=== PATIENT | female | born 1970 | race Caucasian/White ===

== ENCOUNTER 2018-07-01 20:17 | Inpatient (IN) | payer OTHER ==
[~2018-07-01] VITALS: Ht 162.6 cm; Wt 91.2 kg
[2018-07-01 20:17] VITALS: BP 130/90
[~2018-07-01 20:17] MED LIST: ALPR1TAB2 PO; LAMO150T PO; PARO40TA1 PO; ZIPR60CA1 PO
--- NOTE | 2018-07-01 20:20 | NUR ---
PT BIBA C/O DIZZINESS. PT STATES SHE WAS GIVING BLOOD TODAY AND AFTER PROCEDURE PT GOT DIZZY UPON STANDING. PT STATES 0/10 PAIN. PT ACTING APPROPRIATLY. PUPILS ACCOMMODATING BL. PT SPEAKING IN CLEAR AND COMPLETE SENTENCES; PT ACTING APPROPRIATLY. PT IN GOWN; SAFETY PRECAUTION IN PLACE. PENDING ER MD MAZARIEGOS. PMH: HYPERTENSION
--- NOTE | 2018-07-01 20:21 | NUR ---
PT AMBULATED W/ STEADY GATE TO BED 11.
--- NOTE | 2018-07-01 21:35 | NUR ---
SNACK AND JUICE PROVIDED UPON PT REQUEST.
--- NOTE | 2018-07-01 23:30 | NUR ---
LAB AT BEDSIDE.
--- NOTE | 2018-07-01 23:42 | NUR ---
MIGUEL ANGEL EMT AT BEDSIDE PERFORMING EKG.
[2018-07-01 23:43] LABS: BASOPHILS # (AUTO) 0.1 K/uL (0.00-0.22); EOSINOPHILS # (AUTO) 0.6 K/uL (0-0.4); EOSINOPHILS % (AUTO) 4.1 % (0.0-4.0); HEMATOCRIT 40.1 % (36-48); HEMOGLOBIN 13.4 g/dL (12.0-16.0); LYMPHOCYTES # (AUTO) 3.6 K/uL (2.5-16.5); MEAN CORPUSCULAR HEMOGLOBIN 28 pg (27-31); MEAN CORPUSCULAR HGB CONC 33 g/dL (33-37); MEAN CORPUSCULAR VOLUME 84.7 fL (80-94); MONOCYTES # (AUTO) 0.8 K/uL (0.8-1.0); MONOCYTES % (AUTO) 5.2 % (1.7-9.3); PLATELET COUNT (AUTO) 415 K/uL (140-450); RED BLOOD CELL COUNT(AUTO) 4.73 MIL/uL (4.20-5.40); RED CELL DISTRIBUTION WIDTH 14.1 % (11.6-13.7); WHITE BLOOD COUNT (AUTO) 15.2 K/uL (4.8-10.8)
[2018-07-01 23:53] LABS: APPEARANCE,URINE CLEAR (CLEAR); BILIRUBIN,URINE NEGATIVE (NEGATIVE); BLOOD, URINE NEGATIVE (NEGATIVE); COLOR,URINE YELLOW (YELLOW); LEUKOCYTE ESTERASE ,URINE NEGATIVE (NEGATIVE); NITRITE, URINE NEGATIVE (NEGATIVE); PH,URINE 7.5 (5.0-9.0); UGLUCOSE NEGATIVE (NEGATIVE)
[2018-07-02 00:07] LABS: ALBUMIN 3.4 g/dL (3.4-5.0); ANION GAP 10.8 (8-16); CARBON DIOXIDE 32.9 mmol/L (21-32); TOTAL BILIRUBIN 0.2 mg/dL (0.0-1.0)
[2018-07-02 00:09] LABS: POTASSIUM 2.7 mmol/L (3.5-5.1)
[2018-07-02 00:12] LABS: NEUTROPHILS % (AUTO) 65.7 % (42.2-75.2)
[2018-07-02] MEDS ORDERED: POTASSIUM CHL 20 MEQ/NACL 0.9% 1,000 ML IV ONE (02:30)
[2018-07-02] MEDS: POTASSIUM CHL 20MEQ/D5-NS 1,000 ML IV SCH ×3 (02:30→22:32)
[2018-07-02] MEDS ORDERED: ONDANSETRON 4 MG/2 ML VIAL IVP PRN (02:30)
[2018-07-02 03:00] VITALS: BP 120/76
--- NOTE | 2018-07-02 03:00 | NUR ---
RECEIVED BEDSIDE REPORT FROM ED NURSE. PATIENT IS AWAKE, ALERT, AND COOPERATIVE . RESPIRATION EVEN UNLABORED ON ROOM AIR. NO DISTRESS NOTED. SKIN IS WARM AND DRY. IV PATENT AND INTACT. PLAN OF CARE WAS DISCUSSED AND REVIEWED. ALL SAFETY MEASURES IN PLACE. MRSA SCREEN DONE. ORIENT PATIENT TO ROOM, STAFF, AND CALL LIGHT. BED IS AT LOW POSITION. CALL LIGHT WITHIN REACH AND VERBALIZES ITS USE. WILL CONTINUE TO MONITOR.
--- NOTE | 2018-07-02 03:05 | NUR ---
Admited to Tele. Patient went to room 123-A via gurney, by RN and EMT. Patient acting appropriatly, states 0/10 pain. Belongings list completed. Report to SARA Hanson.
[2018-07-02 04:00] VITALS: BP 116/72
--- NOTE | 2018-07-02 04:00 | NUR ---
VITALS WERE TAKEN. PATIENT CONDITION STABLE. WILL CONTINUE TO MONITOR
--- NOTE | 2018-07-02 05:55 | NUR ---
PATIENT SLEEPING RESPIRATION EVEN UNLABORED ON ROOM AIR. NO DISTRESS NOTED. WILL CONTINUE TO MONITOR
--- NOTE | 2018-07-02 07:20 | NUR ---
ENDORSED PATIENT TO DAY SHIFT NURSE FOR CONTINUITY OF CARE. PATIENT IS IN STABLE CONDITION.
--- NOTE | 2018-07-02 07:21 | NUR ---
RECEIVED BEDSIDE REPORT FROM SARA PRESLEY. PATIENT ON TELE MONITOR AND STANDARD PRECAUTIONS IN PLACE. PATIENT AAOX4 AND COMMUNICATES APPROPRIATELY, ON ROOM AIR, NO DISTRESS NOTED. PATIENT AMBULATORY AND CONTINENT. SKIN INTACT. FALL RISK PROTOCOL IN PLACE. IV ON R WRIST 20 G, IV ASYMPTOMATIC PATENT AND INTACT. BED IN LOW POSITION, CALL LIGHT WITHIN REACH, SIDE RAILS X2 UP
[2018-07-02 08:00] VITALS: BP 103/73
--- NOTE | 2018-07-02 08:38 | NUR ---
PATIENT HAS BEEN SCREENED AND CATEGORIZED LOW NUTRITION RISK. PATIENT WILL BE SEEN WITHIN 7 DAYS OF ADMISSION. 07/08/[address]
[2018-07-02] MEDS: ALPRAZolam 0.5 MG TAB PO PRN (08:39)
--- NOTE | 2018-07-02 08:42 | NUR ---
ADMINISTERED SCHEDULED MEDS. PATIENT TOLERATED WELL
[2018-07-02] MEDS ORDERED: PARoxetine 20 MG TAB PO SCH (09:00)
--- NOTE | 2018-07-02 11:13 | NUR ---
ADMINISTERED K DUR ORDERED. PATIENT TOLERATED WELL
[2018-07-02] MEDS ORDERED: POTASSIUM CHLORIDE 10 MEQ TABER PO SCH (11:15)
[2018-07-02 12:00] VITALS: BP 118/81
[2018-07-02] MEDS ORDERED: MAG SULF 2000 MG/WATER PREMIX 50 ML IV SCH (12:15)
[2018-07-02] MEDS: MORPHINE SULFATE 2 MG/ML SYR IVP PRN (12:18)
--- NOTE | 2018-07-02 12:25 | NUR ---
PATIENT EATING LUNCH, ON ROOM AIR, NO DISTRESS NOTED
--- NOTE | 2018-07-02 14:26 | NUR ---
PATIENT SLEEPING, ON ROOM AIR, NO DISTRESS NOTED
[2018-07-02 16:00] VITALS: BP 112/70
--- NOTE | 2018-07-02 16:30 | NUR ---
PATIENT AMBULATED TO RESTROOM, ON ROOM AIR, NO DISTRESS NOTED
--- NOTE | 2018-07-02 18:30 | NUR ---
PATIENT TAKING A SHOWER, NOW ON MED SURGE. NO COMPLAINTS AT THIS TIME
--- NOTE | 2018-07-02 19:11 | NUR ---
BEDSIDE REPORT GIVEN TO SARA PRESLEY. PATIENT ENDORSED IN STABLE CONDITION
--- NOTE | 2018-07-02 19:30 | NUR ---
RECEIVED BEDSIDE REPORT FROM DAY SHIFT NURSE. PATIENT IS AWAKE, ALERT, AND COOPERATIVE. RESPIRATION EVEN UNLABORED ON ROOM AIR. NO DISTRESS NOTED. SKIN IS WARM AND DRY. IV PATENT AND INTACT PATIENT IS AMBULATORY. PLAN OF CARE WAS DISCUSSED. ALL SAFETY MEASURES IN PLACE. BED IS AT LOW POSITION. CALL LIGHT WITHIN REACH AND VERBALIZES ITS USE. WILL CONTINUE TO MONITOR.
[2018-07-02 20:00] VITALS: BP 115/75
--- NOTE | 2018-07-02 20:00 | NUR ---
INITIAL ASSESSMENT DONE. VITALS WERE TAKEN. PATIENT CONDITION STABLE. WILL CONTINUE TO MONITOR
--- NOTE | 2018-07-02 21:00 | NUR ---
ALL SCHEDULED MEDS WERE GIVEN AND TOLERATED THEM WELL. NO ASE NOTED. WILL CONTINUE TO MONITOR
--- NOTE | 2018-07-02 23:00 | NUR ---
PATIENT IN BED SLEEPING RESPIRATION EVEN UNLABORED ON ROOM AIR. NO DISTRESS NOTED. WILL CONTINUE TO MONITOR
[2018-07-03] VITALS: BP 90/60
--- NOTE | 2018-07-03 | NUR ---
VITALS WERE TAKEN. PATIENT CONDITION STABLE. NO DISTRESS NOTED. WILL CONTINUE TO MONITOR
--- NOTE | 2018-07-03 02:45 | NUR ---
PATIENT WOKE UP COMPLAINING OF ARM PAIN 08/24. PRN PAIN MED ADMINISTERED PER ORDER. WILL CONTINUE TO MONITOR
[2018-07-03] MEDS: MORPHINE SULFATE 2 MG/ML SYR IVP PRN ×2 (02:49→08:05)
[2018-07-03 06:25] LABS: BASOPHILS # (AUTO) 0.1 K/uL (0.00-0.22); BASOPHILS % (AUTO) 1.3 % (0.0-2.0); EOSINOPHILS # (AUTO) 0.7 K/uL (0-0.4); EOSINOPHILS % (AUTO) 8.5 % (0.0-4.0); HEMATOCRIT 33.7 % (36-48); HEMOGLOBIN 11.3 g/dL (12.0-16.0); LYMPHOCYTES # (AUTO) 3.1 K/uL (2.5-16.5); LYMPHOCYTES % (AUTO) 35.6 % (20.5-51.1); MEAN CORPUSCULAR HEMOGLOBIN 28 pg (27-31); MEAN CORPUSCULAR HGB CONC 33 g/dL (33-37); MEAN CORPUSCULAR VOLUME 85.2 fL (80-94); MONOCYTES # (AUTO) 0.7 K/uL (0.8-1.0); MONOCYTES % (AUTO) 7.7 % (1.7-9.3); NEUTROPHILS # (AUTO) 4.1 K/uL (1.8-7.7); NEUTROPHILS % (AUTO) 46.9 % (42.2-75.2); PLATELET COUNT (AUTO) 313 K/uL (140-450); RED BLOOD CELL COUNT(AUTO) 3.96 MIL/uL (4.20-5.40); RED CELL DISTRIBUTION WIDTH 14.7 % (11.6-13.7); WHITE BLOOD COUNT (AUTO) 8.7 K/uL (4.8-10.8)
[2018-07-03 06:29] LABS: ALBUMIN 2.5 g/dL (3.4-5.0); ANION GAP 11.2 (8-16); CARBON DIOXIDE 24.9 mmol/L (21-32); CREATININE 0.8 mg/dL (0.6-1.3); MAGNESIUM 1.9 mg/dL (1.8-2.4); POTASSIUM 3.1 mmol/L (3.5-5.1); TOTAL BILIRUBIN 0.1 mg/dL (0.0-1.0)
--- NOTE | 2018-07-03 07:18 | NUR ---
ENDORSED PATIENT TO DAY SHIFT NURSE FOR CONTINUITY OF CARE. PATIENT CONDITION IS STABLE.
--- NOTE | 2018-07-03 07:30 | NUR ---
RECEIVED BEDSIDE REPORT FROM LADLE PATCHER NURSE. PT IS AWAKE AND ALERT, NO S/S OF ANY ACUTE DISTRESS OR SOB NOTED. PT IS ON ROOM AIR, SKIN INTACT. IV SITE IS ON THE R WRIST, INFUSING D5 NS KCL 20 MEQ, AT 100 ML/HR. IV IS PATENT AND INTACT. PT IS CURRENTLY C/O 5/10 PAIN IN THE R ARM AFTER "DONATING PLASMA", AND IS ASKING FOR HER PAIN MEDICINE; WILL MEDICATE. FALL PRECAUTIONS ARE IN PLACE, HOWEVER, PT ABLE TO AMBULATE IN THE ROOM. CALL LIGHT IS WITHIN REACH. WILL CONTINUE TO MONITOR.
[2018-07-03 08:00] VITALS: BP 123/84
[2018-07-03] MEDS: ALPRAZolam 0.5 MG TAB PO PRN (08:15)
--- NOTE | 2018-07-03 08:20 | NUR ---
PT REFUSED HER SCHEDULED LAMICTAL, ASKING INSTEAD WHY SHE ISN'T GETTING HER USUAL TOPAMAX, WHICH SHE TAKES AT HOME. WILL FOLLOW UP ABOUT THIS WITH MD. SHE RECEIVED HER PRN MORPHINE FOR THE ARM PAIN, AND PRN XANAX FOR ANXIETY. WILL REASSESS PAIN WITHIN AN HOUR.
[2018-07-03] MEDS: POTASSIUM CHL 20MEQ/D5-NS 1,000 ML IV SCH (08:40)
[2018-07-03] MEDS ORDERED: POTASSIUM CHLORIDE 10 MEQ TABER PO SCH (10:15)
--- NOTE | 2018-07-03 13:00 | NUR ---
PT HAS DISCHARGED. D/C INSTRUCTIONS WERE GIVEN, PT VERBALIZED UNDERSTANDING. IV SITE AND WRIST BANDS WERE REMOVED. PT LEFT WITH ALL HER BELONGINGS IN STABLE CONDITION, ACCOMPANIED BY FRIENDS.
== END 2018-07-03 13:00 | disposition home or self-care (01) | DRG 422 ==
LOC: MED 20:17 → MTU 07-02 02:36
PROVIDERS: ADMIT Internal Medicine Pulmonary Disease; ATTEND Internal Medicine Pulmonary Disease
DX: E87.6 Hypokalemia (principal); E86.0 Dehydration; I10 Essential (primary) hypertension; F32.9 Major depressive disorder, single episode, unspecified; F41.9 Anxiety disorder, unspecified; F39 Unspecified mood [affective] disorder
CPT/HCPCS: 36415; 80053; 81003; 83735; 85025; 87081; 93005; 99285; J2270; J7030

== ENCOUNTER 2018-11-08 09:43 | Emergency (ER) | payer OTHER ==
[~2018-11-08] VITALS: Ht 160 cm; Wt 89.4 kg
[2018-11-08 09:48] VITALS: BP 127/89
--- NOTE | 2018-11-08 09:54 | NUR ---
Patient ambulated to bed 9. RN evaluating patient at bedside.
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
--- NOTE | 2018-11-08 10:28 | NUR ---
Patient discharged with v/s stable. Written and verbal after care instructions given and explained. Patient alert, oriented and verbalized understanding of instructions. Ambulatory with steady gait. All questions addressed prior to discharge. ID band removed. Patient advised to follow up with PMD. Rx of CLARITIN, HYDROCORTISONE CREAM given. Patient educated on indication of medication including possible reaction and side effects. Opportunity to ask questions provided and answered.
== END 2018-11-08 10:28 | disposition home or self-care (01) ==
LOC: MED 09:43
DX: S40.862A Insect bite (nonvenomous) of left upper arm, initial encounter (principal); S40.861A Insect bite (nonvenomous) of right upper arm, initial encounter; S30.860A Insect bite (nonvenomous) of lower back and pelvis, initial encounter; S30.861A Insect bite (nonvenomous) of abdominal wall, initial encounter; S10.96XA Insect bite of unspecified part of neck, initial encounter; S40.262A Insect bite (nonvenomous) of left shoulder, initial encounter; S40.261A Insect bite (nonvenomous) of right shoulder, initial encounter; Z79.899 Other long term (current) drug therapy; I10 Essential (primary) hypertension; F41.9 Anxiety disorder, unspecified; F32.9 Major depressive disorder, single episode, unspecified; W57.XXXA Bitten or stung by nonvenomous insect and other nonvenomous arthropods, initial encounter; Y93.89 Activity, other specified; Y92.89 Other specified places as the place of occurrence of the external cause; Y99.8 Other external cause status
CPT/HCPCS: 99283

== ENCOUNTER 2023-03-14 20:40 | Emergency (ER) | payer OTHER ==
[~2023-03-14] VITALS: Ht 157.5 cm; Wt 88.9 kg
[2023-03-14 21:04] VITALS: BP 112/95; PULSE 169; RESP 18; TEMP 97.5; O2SAT 95
[2023-03-14 21:39] VITALS: O2SAT 99
[2023-03-14] MEDS ORDERED: ceFAZolin 1,000 MG VIAL IM ONE (22:25)
[2023-03-14] MEDS ORDERED: CEPH-588 PO (22:27)
[2023-03-14] MEDS ORDERED: WATER STERILE 10 ML MC ONE (22:29)
[2023-03-14 22:46] VITALS: BP 131/88; PULSE 109; RESP 18; TEMP 98.1; O2SAT 99
== END 2023-03-14 22:46 | disposition home or self-care (01) ==
LOC: MED 20:40
DX: L03.116 Cellulitis of left lower limb (principal); J45.909 Unspecified asthma, uncomplicated; I10 Essential (primary) hypertension; Z79.899 Other long term (current) drug therapy
CPT/HCPCS: 93005; 96372; 99283; J0690

== ENCOUNTER 2023-03-29 11:03 | Emergency (ER) | payer OTHER ==
[~2023-03-29] VITALS: Ht 162.6 cm; Wt 88.5 kg
[~2023-03-29 11:03] MED LIST changes: +CEPH-588 PO
[2023-03-29 11:12] VITALS: BP 151/98; PULSE 79; RESP 19; TEMP 97.9; O2SAT 97
[2023-03-29] MEDS ORDERED: BACI-418 TP (11:57)
[2023-03-29] MEDS: BACITRACIN OINT 500 UNITS/GM PKT TP ONE (12:06)
== END 2023-03-29 12:05 | disposition home or self-care (01) ==
LOC: MED 11:03
DX: S81.812D Laceration without foreign body, left lower leg, subsequent encounter (principal); Z48.00 Encounter for change or removal of nonsurgical wound dressing; I10 Essential (primary) hypertension; J45.909 Unspecified asthma, uncomplicated; Z79.899 Other long term (current) drug therapy; W10.8XXD Fall (on) (from) other stairs and steps, subsequent encounter
CPT/HCPCS: 99282

== ENCOUNTER 2023-08-14 14:20 | Emergency (ER) | payer OTHER ==
[~2023-08-14] VITALS: Ht 162.6 cm; Wt 83.1 kg
[~2023-08-14 14:20] MED LIST changes: +BACI-418 TP
[2023-08-14 14:33] VITALS: BP 133/79; PULSE 68; RESP 18; TEMP 97.3
[2023-08-14] MEDS ORDERED: LOPE-289 PO (15:13)
[2023-08-14] MEDS ORDERED: CIPR500T4 PO (15:13)
[2023-08-14] MEDS ORDERED: ONDA8TAB87 PO (15:13)
[2023-08-14] MEDS ORDERED: IBUP-2213 PO (15:13)
[2023-08-14] MEDS: ONDANSETRON 4 MG/2 ML VIAL IVP ONE (15:14)
[2023-08-14] MEDS: NACL 0.9% 1,000 ML IV ONE (15:17)
[2023-08-14 16:18] VITALS: BP 130/72; PULSE 69; RESP 18; TEMP 98; O2SAT 99
== END 2023-08-14 16:18 | disposition home or self-care (01) ==
LOC: MED 14:20
DX: R11.2 Nausea with vomiting, unspecified (principal); R19.7 Diarrhea, unspecified; R42 Dizziness and giddiness; J45.909 Unspecified asthma, uncomplicated; I10 Essential (primary) hypertension; Z79.899 Other long term (current) drug therapy
CPT/HCPCS: 96361; 96374; 99283; J2405; J7030